=== PATIENT | female | born 1950 | race American Indian/Alaskan Native ===

== ENCOUNTER 2018-05-02 11:07 | Outpatient (CLI) | payer MEDICARE ==
[2018-05-02 11:23] LABS: Hematocrit 36.7 % (30.3-42.9); Hemoglobin 11.9 gm/dl (10.1-14.3); Mean Corpuscular HGB Conc 33 % (30-34); Mean Corpuscular Hemoglobin 29 pg (28-32); Mean Corpuscular Volume 90 fl (79-97); Platelet Count 180 K/mm3 (140-440); Red Blood Count 4.08 M/mm3 (3.65-5.03); Red Cell Distribution Width 13.9 % (13.2-15.2)
[2018-05-02 11:46] LABS: Alanine Aminotransferase 23 units/L (7-56); Albumin 3.9 g/dL (3.9-5); BUN/Creatinine Ratio 17; Blood Urea Nitrogen 15 mg/dL (7-17); Calcium 9.6 mg/dL (8.4-10.2); Hemolysis Index 8
[2018-05-02 12:18] LABS: Erythrocyte Sedimentation Rate 31 mm/Hr (0-20)
== END 2018-05-02 11:08 | disposition home or self-care (01) ==
LOC: LAB 11:07
PROVIDERS: ATTEND Specialist
DX: M31.6 Other giant cell arteritis (principal)
CPT/HCPCS: 36415; 80053; 85027; 85652

== ENCOUNTER 2018-06-02 10:46 | Outpatient (CLI) | payer MEDICARE | END 2018-06-02 10:47 | disposition home or self-care (01) | LOC: LAB 10:46 | PROVIDERS: ATTEND Specialist | DX: G43.719 Chronic migraine without aura, intractable, without status migrainosus (principal); Z88.8 Allergy status to other drugs, medicaments and biological substances; Z91.010 Allergy to peanuts; Z88.2 Allergy status to sulfonamides | CPT/HCPCS: 36415; 85652 ==